=== PATIENT | female | born 1960 | race Caucasian/White ===

== ENCOUNTER → 2016-07-30 | Outpatient (CLI) | payer OTHER ==
[~2016-07-30] MED LIST: MOTRIN400 MG PO; PROZAC40 MG PO
== END | disposition home or self-care (01) ==
LOC: CDC 09:19
DX: Z01.810 Encounter for preprocedural cardiovascular examination (principal); R94.31 Abnormal electrocardiogram [ECG] [EKG]
CPT/HCPCS: 93000

== ENCOUNTER 2016-08-06 08:18 | Day surgery (SDC) | payer OTHER ==
[~2016-08-06] VITALS: Ht 154.9 cm; Wt 63.5 kg
[2016-08-06 08:50] VITALS: BP 122/81
[2016-08-06 11:12] VITALS: BP 124/72
[2016-08-06 11:50] VITALS: BP 118/69
[2016-08-07 13:12] LABS: INTERNAL CONTROL VALID? YES
== END 2016-08-06 12:00 | disposition home or self-care (01) ==
LOC: SDC
PROVIDERS: Obstetrics & Gynecology
DX: N92.4 Excessive bleeding in the premenopausal period (principal); N84.0 Polyp of corpus uteri; E78.5 Hyperlipidemia, unspecified; R73.09 Other abnormal glucose; Z82.49 Family history of ischemic heart disease and other diseases of the circulatory system; Z80.3 Family history of malignant neoplasm of breast; Z87.891 Personal history of nicotine dependence; F32.9 Major depressive disorder, single episode, unspecified; F41.9 Anxiety disorder, unspecified
CPT/HCPCS: 84703; 88305; J1100; J1885; J2250; J2405; J3010